=== PATIENT | female | born 1975 | race Caucasian/White ===

== ENCOUNTER 2018-01-02 12:31 | Emergency (ER) | payer OTHER ==
[~2018-01-02] VITALS: Ht 160 cm; Wt 115.3 kg
[~2018-01-02 12:31] MED LIST: Motrin PO; Percocet 5/325,Endoc PO
[2018-01-02 15:37] VITALS: BP 137/113
== END 2018-01-02 15:44 | disposition home or self-care (01) ==
LOC: EME 12:31
DX: M71.22 Synovial cyst of popliteal space [Baker], left knee (principal); M79.605 Pain in left leg
CPT/HCPCS: 73590; 93971; 99281; 99283